=== PATIENT | male | born 1960 | race Caucasian/White ===

== ENCOUNTER 2022-04-27 15:07 | Inpatient (IN) | payer BC ==
[~2022-04-27] VITALS: Ht 177.8 cm; Wt 104.1 kg
[2022-04-27] MEDS ORDERED: ZYRTEC10 M2 PO (15:47)
[2022-04-27 15:49] LABS: BASOPHILS ABSOLUTE AUTO 0.09 K/mm3 (0.00-0.23); BASOPHILS PERCENT AUTO 1 % (0-2); EOSINOPHILS ABSOLUTE AUTO 0.11 K/mm3 (0.00-0.68); EOSINOPHILS PERCENT AUTO 1 % (0-6); Hematocrit 46.8 % (37.0-53.0); IMMATURE GRAN ABSOLUTE AUTO 0.06 K/mm3 (0.00-0.10); IMMATURE GRAN PERCENT AUTO 1 % (0-1); LYMPHOCYTES ABSOLUTE AUTO 4.68 K/mm3 (0.84-5.20); LYMPHOCYTES PERCENT AUTO 41 % (21-46); MONOCYTES ABSOLUTE AUTO 1.17 K/mm3 (0.16-1.47); MONOCYTES PERCENT AUTO 10 % (4-13); Mean Corpuscular HGB 29.3 pg (26.0-34.0); Mean Corpuscular HGB Conc 34.2 g/dL (31.5-36.5); Mean Corpuscular Volume 86 fL (80-100); NEUTROPHILS ABSOLUTE AUTO 5.19 K/mm3 (1.96-9.15); NEUTROPHILS PERCENT AUTO 46 % (41-73); Platelet Count 391 K/mm3 (150-400); RDW Coefficient Variation 13.2 % (11.7-14.2); RDW Standard Deviation 41.1 fL (35.1-46.3); Red Blood Cell Count 5.46 M/mm3 (4.30-5.90)
[2022-04-27 16:06] LABS: Alanine Aminotransfer (ALT/SGP 37 U/L (12-78); Albumin, Blood 4.1 g/dL (3.4-5.0); Albumin/Globulin Ratio 1.2 (0.8-1.8); Alk Phos 51 U/L (50-136); Anion Gap 7 mmol/L (6-16); Aspartate Aminotrans (AST/SGOT 23 U/L (12-37); Bilirubin, Total 0.4 mg/dL (0.1-1.0); Blood Urea Nitrogen 18 mg/dL (8-24); Bun/Creatinine Ratio 18.6 (12.0-20.0); CHOL/HDL RATIO 5.7; CO2, Blood 25 mmol/L (21-32); Calcium, Blood 9.5 mg/dL (8.5-10.1); Chloride, Blood 108 mmol/L (98-108); Cholesterol 215 mg/dL (50-200); Creatinine, Blood 0.97 mg/dL (0.60-1.20); Globulin, Blood 3.3 g/dL (2.2-4.0); Glomerular Filtration Rate 89 (60-); Glucose, Blood 116 mg/dL (70-99); HDL Cholesterol 38 mg/dL (>39); International Normalized Ratio 0.98; Low Density Lipoprotein Chol 115 mg/dL (0-110); Magnesium, Blood 2.1 mg/dL (1.6-2.4); Potassium, Blood 3.5 mmol/L (3.5-5.5); Prothrombin Time Results 10.3 Sec (9.7-11.5); Sodium, Blood 140 mmol/L (136-145); Total Protein, Blood 7.4 g/dL (6.4-8.2); Triglycerides 308 mg/dL (30-160); Very Low Density Lipoprot Chol 61 mg/dL (6-32)
--- NOTE | 2022-04-27 17:59 | NUR ---
CODE STATUS UPDATE: Pt's family requesting to change pt from DNR back to full code. RN explained that pt would likely not recover if he coded due to his current medical status. Provider called and notified. Palliative care RN called to come see family
[2022-04-27 19:48] LABS: BASOPHILS ABSOLUTE AUTO 0.05 K/mm3 (0.00-0.23); BASOPHILS PERCENT AUTO 1 % (0-2); EOSINOPHILS ABSOLUTE AUTO 0.02 K/mm3 (0.00-0.68); EOSINOPHILS PERCENT AUTO 0 % (0-6); Hemoglobin 15.8 g/dL (13.5-17.5); IMMATURE GRAN ABSOLUTE AUTO 0.08 K/mm3 (0.00-0.10); IMMATURE GRAN PERCENT AUTO 1 % (0-1); LYMPHOCYTES ABSOLUTE AUTO 1.49 K/mm3 (0.84-5.20); LYMPHOCYTES PERCENT AUTO 15 % (21-46); MONOCYTES ABSOLUTE AUTO 0.37 K/mm3 (0.16-1.47); MONOCYTES PERCENT AUTO 4 % (4-13); Mean Corpuscular HGB 29.5 pg (26.0-34.0); Mean Corpuscular HGB Conc 34.3 g/dL (31.5-36.5); Mean Corpuscular Volume 86 fL (80-100); Mean Platelet Volume 8.9 fL (9.1-12.4); NEUTROPHILS ABSOLUTE AUTO 8.07 K/mm3 (1.96-9.15); NEUTROPHILS PERCENT AUTO 80 % (41-73); Platelet Count 307 K/mm3 (150-400); RDW Coefficient Variation 13.1 % (11.7-14.2); RDW Standard Deviation 40.5 fL (35.1-46.3); Red Blood Cell Count 5.36 M/mm3 (4.30-5.90); White Blood Cell Count 10.08 K/mm3 (4.00-11.30)
[2022-04-27 20:11] LABS: Anion Gap 7 mmol/L (6-16); Blood Urea Nitrogen 13 mg/dL (8-24); Bun/Creatinine Ratio 14.5 (12.0-20.0); CO2, Blood 22 mmol/L (21-32); Calcium, Blood 8.8 mg/dL (8.5-10.1); Chloride, Blood 108 mmol/L (98-108); Glomerular Filtration Rate 97 (60-); Glucose, Blood 129 mg/dL (70-99); Potassium, Blood 4.4 mmol/L (3.5-5.5); Sodium, Blood 137 mmol/L (136-145)
--- NOTE | 2022-04-27 21:34 | NUR ---
Assumed pt. care at 191 Pt. A&O x4 TR band in place to R radial site inflated at 18 ccs distal pulse strong, cap refill less than 3 sec Pt. denies chest pain noted to be NSR, HR in 60s upon arrival with slight ST elevation, Dr. Weiss aware [place] tinged urine noted, fluids at 150/hr Call light within reach
[2022-04-28 03:16] LABS: BASOPHILS ABSOLUTE AUTO 0.04 K/mm3 (0.00-0.23); BASOPHILS PERCENT AUTO 0 % (0-2); EOSINOPHILS ABSOLUTE AUTO 0.02 K/mm3 (0.00-0.68); EOSINOPHILS PERCENT AUTO 0 % (0-6); Hematocrit 42.8 % (37.0-53.0); Hemoglobin 14.7 g/dL (13.5-17.5); IMMATURE GRAN ABSOLUTE AUTO 0.04 K/mm3 (0.00-0.10); IMMATURE GRAN PERCENT AUTO 0 % (0-1); LYMPHOCYTES ABSOLUTE AUTO 1.63 K/mm3 (0.84-5.20); LYMPHOCYTES PERCENT AUTO 16 % (21-46); MONOCYTES ABSOLUTE AUTO 0.74 K/mm3 (0.16-1.47); MONOCYTES PERCENT AUTO 7 % (4-13); Mean Corpuscular HGB 29.2 pg (26.0-34.0); Mean Corpuscular HGB Conc 34.3 g/dL (31.5-36.5); Mean Corpuscular Volume 85 fL (80-100); NEUTROPHILS ABSOLUTE AUTO 7.97 K/mm3 (1.96-9.15); NEUTROPHILS PERCENT AUTO 76 % (41-73); Platelet Count 289 K/mm3 (150-400); RDW Coefficient Variation 13.2 % (11.7-14.2); RDW Standard Deviation 41.2 fL (35.1-46.3); Red Blood Cell Count 5.03 M/mm3 (4.30-5.90); White Blood Cell Count 10.44 K/mm3 (4.00-11.30)
[2022-04-28 03:34] LABS: Bun/Creatinine Ratio 16.5 (12.0-20.0); Calcium, Blood 8.7 mg/dL (8.5-10.1); Creatinine, Blood 0.85 mg/dL (0.60-1.20); Magnesium, Blood 2.1 mg/dL (1.6-2.4)
--- NOTE | 2022-04-28 04:19 | NUR ---
End of Shift Summary Pt. TR band removed with tegaderm applied, no complications at site. Pt. had consistantly low HR, bradying down to 38 at lowest after giving ordered dose of metoprolol.
--- NOTE | 2022-04-28 08:00 | NUR ---
REPORTED FROM PM RN STASHA, NO DISTRESS, PATIENT EATING BREAKFAST NOW, REPORTS SOB WHEN LYING FLATTER IN BED, SATS 95% ON RA, NO SOB PRESENTLY, CALL LIGHT WITH IN REACH, POSSIBLE DISCHARGE HOME, [facility]
--- NOTE | 2022-04-28 12:00 | NUR ---
ASSUME CARE: I have assumed care of this patient.
--- NOTE | 2022-04-28 18:29 | NUR ---
SHIFT SUMMARY: Pt reports complaints of sharp left sided chest pain that improves some with splinting, right sided positioning, and tylenol. Pt has remained bedbound today and declined bed bath. Heparin increased to 20. CIWA three or under this shift. Echo completed. Diet advanted to regular. Pt has been very pleasant and cooperative.
--- NOTE | 2022-04-28 19:10 | NUR ---
Assumed care. Report received from dayshift RN. Pt in bed att, on room air, alert and oriented. Denies chest pain, vs stable. Will continue to monitor.
--- NOTE | 2022-04-29 06:20 | NUR ---
SHIFT SUMMARY. PT RESTED IN BED THROUGHOUT SHIFT. NO CHEST PAIN OR CHANGE IN CONDITION OVERNIGHT. PT INDEPENDENT IN ROOM, ORDERS OBTAINED TO PUT PT ON TELE FOR EASE OF MOVEMENT. VS STABLE, SEE ASSESSMENT FOR FURTHER DETAILS. WILL CONTINUE TO MONITOR AND REPORT OFF TO DAYSHIFT RN.
--- NOTE | 2022-04-29 07:09 | NUR ---
ASSUMED CARE: PT RESTING QUIETLY AT THIS TIME, AWAKE WHEN STAFF ENTERS ROOM. NSR/SONALI ON TELE WITH HR 50S-60S. NPO SIGN PLACED ON DOOR AT THIS TIME AND WILL DETERMINE PLANS WITH CARDIOLOGY. PT AWARE OF NPO STATUS. DENIES FURTHER NEEDS OR CONCERNS AT THIS TIME.
[2022-04-29] MEDS ORDERED: Loratadine10 MG PO (10:47)
[2022-04-29] MEDS ORDERED: ASPI81CH PO (10:48)
[2022-04-29] MEDS ORDERED: Acetaminophen325 M1 PO (10:48)
[2022-04-29] MEDS ORDERED: ATOR80 PO (10:48)
[2022-04-29] MEDS ORDERED: FAMO40 PO (10:49)
[2022-04-29] MEDS ORDERED: EZET10 PO (10:49)
[2022-04-29] MEDS ORDERED: LISI20 PO (10:49)
[2022-04-29] MEDS ORDERED: DULCOLAX400 MG/5 M PO (10:50)
[2022-04-29] MEDS ORDERED: METO50ER PO (10:51)
[2022-04-29] MEDS ORDERED: BRILINTA90 M2 PO (10:51)
--- NOTE | 2022-04-29 11:32 | NUR ---
IV'S DC'D WNL. PT GIVEN INSTRUCTIONS REGARDING FOLLOW UP APPOINTMENTS AND WORK AND DRIVING PRECAUTIONS. AMBULATORY UPON DISCHARGE. NO ACUTE NEEDS OR CONCERNS.
== END 2022-04-29 11:27 | disposition home or self-care (01) | DRG 246 ==
LOC: ER 15:07 → ICUW 15:35
PROVIDERS: Physician Assistant; ADMIT Internal Medicine Interventional Cardiology
PROC: 027037Z Dilation of Coronary Artery, One Artery with Four or More Drug-eluting Intraluminal Devices, Percutaneous Approach (ICD-10-PCS; principal; 2022-04-27)
PROC: 4A023N7 Measurement of Cardiac Sampling and Pressure, Left Heart, Percutaneous Approach (ICD-10-PCS; 2022-04-27)
PROC: B2111ZZ Fluoroscopy of Multiple Coronary Arteries using Low Osmolar Contrast (ICD-10-PCS; 2022-04-27)
PROC: B240ZZ3 Ultrasonography of Single Coronary Artery, Intravascular (ICD-10-PCS; 2022-04-27)
DX: I21.19 ST elevation (STEMI) myocardial infarction involving other coronary artery of inferior wall (principal); I25.10 Atherosclerotic heart disease of native coronary artery without angina pectoris; Z71.6 Tobacco abuse counseling; Z68.32 Body mass index [BMI] 32.0-32.9, adult; E66.9 Obesity, unspecified; E78.5 Hyperlipidemia, unspecified; Z72.0 Tobacco use
CPT/HCPCS: 36415; 71045; 76937; 80048; 80053; 80061; 80069; 82947; 83735; 84484; 85025; 85347; 85610; 86850; 86900; 86901; 92978; 93005; 93010; 93306; 93458; 99152; 99153; 99285-25; A9270; C1725; C1769; C1874; C1887; C1894; C9606; J0153; J0461; J1644; J1650; J2250; J2370; J2405; J3010; J7030; J7040; Q9967

== ENCOUNTER 2022-07-06 05:56 | Day surgery (SDC) | payer BC ==
[~2022-07-06] VITALS: Ht 177.8 cm; Wt 95.4 kg
[~2022-07-06 05:56] MED LIST: ASPI81CH PO; ATOR80 PO; Acetaminophen325 M1 PO; BRILINTA90 M2 PO; DULCOLAX400 MG/5 M PO; EZET10 PO; FAMO40 PO; LISI20 PO; Loratadine10 MG PO; METO50ER PO; ZYRTEC10 M2 PO
--- NOTE | 2022-07-06 09:54 | NUR ---
0940 PATIENT RETURNED FROM THE CATHLAB, SBAR RECEIVED FROM RAPHAEL GARVIN. PATEINT PLACED ON THE MONITOR, CALLL LIGHT IN REACH. RIGHT UPPER ARM CHECKED, GOOD THRILL NOTED TO THE FISTULA. SUTURES IN PLACE AND SMALL AMOUNT OF OOZE NOTED UNDER THE DRESSING. PLETH WAVEFORM GOOD ON THE RIGHT HAND SATURATION. VVS. PATIENT AWAKE AND DRINKING COFFEE. POST PROCEDURE ORDERS NOTED.
--- NOTE | 2022-07-06 13:17 | NUR ---
1145 PATIENT RETURNED TO THE CATHLAB RECOVERY VIA STRETCHER. SBAR RECEIVED FROM RAPHAEL BLANCO. RFA GROIN SITE CLOSED WITH ANGIOSEAL AND MANUAL PRESSURE WAS HELD ALSO. SITE STABLE. PULSE TO THE RIGHT FOOT DP/PT 1+. TR BAND IN PLACE WITH 10 ML OF AIR PLACED AT 1133. GROIN SITE AND RIGHT RADIL SITE STABLE. PATIENT PLACED ON THE MONITOR AND CALL LIGHT IN REACH. TO THE BEDSIDE.
--- NOTE | 2022-07-06 13:21 | NUR ---
1230 LUNCH SERVED. PATIENT REMAINS FLAT IN BED. FEEDING SELF. LEFT BEDSIDE. PHONE NUMBER ON THE CHART.
--- NOTE | 2022-07-06 13:22 | NUR ---
1325 AIR RELEASED FROM THE TR BAND. PATIENT LYING FLAT, CALL LIGHT IN REACH.
--- NOTE | 2022-07-06 13:53 | NUR ---
1148 2 ML OF AIR REMOVED FROM THE TR BAND.
--- NOTE | 2022-07-06 13:53 | NUR ---
1132 2 ML OF AIR REMOVED FROM THE TR BAND.
--- NOTE | 2022-07-06 15:15 | NUR ---
RECEIVED PT FROM [facility] VIA WHEELCHAIR S/P PCI WITH PTCA AND STENTS. 1 STENT AND PTCA TO MID RCA AND 1 STENT TO MID LAD. PT DENIES CHEST PAIN. ECG SHOWS SR WITH RATE 60'S. SBP 110'S. RIGHT RADIAL TR BAND IN PLACE, BUT NO AIR TO CUFF- SMALL HEMATOMA NOTED, BUT SITE SOFTE AND NONTENDER.RIGHT FEMORAL SITE WITH ANGIOSEAL-CLEAR OCCLUSIVE DRESSING C/D/I-NO BLEEDING OR HEMATOMA. LUNGS ARE CLEAR. PT DENIES SOB AT PRESENT, BUT STATES THAT HE HAD BEEN SOB WITH EXERTION PRIOR TO PROCEDURE. SATS>90% ON RA. PT DENIES GI DISTRESS. CARDIAC DIET. PT UP ADLIB IN ROOM. PT AWARE THAT HE IS NOT TO USE RIGHT ARM/FLEX WRIST. CALL LIGHT WITHIN REACH.
--- NOTE | 2022-07-06 16:00 | NUR ---
TR CUFF REMOVED AND POLYMEM DOT PLACED. NO CHANGE IN HEMATOMA. SITE REMAINS NONTENDER. ARM BOARD IN PLACE.
--- NOTE | 2022-07-06 17:44 | NUR ---
PT ATE 100% OF CARDIAC DINNER TRAY. PT DENIES CP OR SOB. RIGTH RADIAL SITE UNCHANGED FROM PREVIOUS ASSESSMENT. PT NEEDS REMINDERS AT TIMES NOT TO USE HIS RIGHT ARM. RIGHT FEMORAL ANGIOSEAL/DRESSING C/D/I. CALL LIGHT WITHIN REACH.
--- NOTE | 2022-07-07 05:45 | NUR ---
SHIFT SUMMARY PT ALERT AND ORIENTED X4. AFEBRILE. BP STABLE. ON RA SATS OVER 97%. HR SB/SR 40-60'S. R FEMORAL SITE AND R RADIAL SITE C/D/I. INDEPENDENT IN ROOM. NO C/O PAIN OR DISCOMFORT. IN BED SLEEPING, WILL CONTINUE TO MONITOR UNTIL REPORT GIVEN TO DAYSHIFT RN
[2022-07-07 08:03] LABS: Bun/Creatinine Ratio 17.1 (12.0-20.0); Calcium, Blood 8.6 mg/dL (8.5-10.1); Creatinine, Blood 0.82 mg/dL (0.60-1.20); Potassium, Blood 4.1 mmol/L (3.5-5.5)
--- NOTE | 2022-07-07 09:12 | NUR ---
DISCHARGE SUMMARY PATIENT DISCHARED HOME. DISCHARGE PAPERWORK REVIEWED WITH PATIENT AND ALL QUESTIONS ANSWERED, NO NEW MEDICATIONS. IV D/C'D. PATIENT AND ALL BELONGINGS TAKEN WITH PATIENT. DRESSINGS C/D/I AT DISCHARGE WITH IMMOBOLIZER IN PLACE ON WRIST. PATIENT TAKEN VIA PERSONAL CAR BY .
== END 2022-07-07 09:11 | disposition home or self-care (01) ==
LOC: MHTC 05:56 → PCU 15:11 → MHTC 07-07 09:11
PROVIDERS: Internal Medicine Cardiovascular Disease
PROC: 4A023N7 Measurement of Cardiac Sampling and Pressure, Left Heart, Percutaneous Approach (ICD-10-PCS; principal; 2022-07-06)
PROC: 027135Z Dilation of Coronary Artery, Two Arteries with Two Drug-eluting Intraluminal Devices, Percutaneous Approach (ICD-10-PCS; principal; 2022-07-06)
PROC: B2111ZZ Fluoroscopy of Multiple Coronary Arteries using Low Osmolar Contrast (ICD-10-PCS; principal; 2022-07-06)
DX: I25.10 Atherosclerotic heart disease of native coronary artery without angina pectoris (principal); Q24.9 Congenital malformation of heart, unspecified; R00.1 Bradycardia, unspecified; I10 Essential (primary) hypertension; E78.5 Hyperlipidemia, unspecified; Z79.82 Long term (current) use of aspirin; Z79.899 Other long term (current) drug therapy
CPT/HCPCS: 36415; 76937; 80048; 85347; 93454; 99152; 99153; A9270; C1725; C1753; C1760; C1769; C1874; C1887; C1894; C9600; C9601; J1644; J2250; J3010; J7030; J7040; J7050; Q9967